=== PATIENT | female | born 1955 | race Caucasian/White ===

== ENCOUNTER 2017-01-04 13:34 | Emergency (ER) | payer OTHER ==
[~2017-01-04] VITALS: Ht 171.4 cm; Wt 99.8 kg
--- NOTE | ~2017-01-04 | CT2 ---
[facility] A Service of [facility] RADIOLOGY TEXT RESULTS PATIENT: CHIOMA BAUMAN LOCATION: [facility] : 57 UNIT #: [id number] AGE: [address]: Giovanni Santoro DO SEX: F ORDER DR: [id number] [facility] [address] [place], [place] [address] [id number] MR#: [id number] Acc #: [id number] NAME: CHIOMA BAUMAN. : 1955 SEX: F STUDY DATE/TIME: 01/04/2017 17:11 UNIT: [facility] ROOM: STUDY DESCRIPTION: CT Abd and Pelv W Cont Attending Physician: Giovanni Santoro D.O. Ordering Physician: Giovanni Santoro D.O. Primary Care Physician: Ponce Lafleur Jr., M.D. MEDICAL IMAGING REPORT This report is preliminary unless electronic signature is present EXAM CT abdomen and pelvis with contrast DATE 01/04/2017 HISTORY 61-year-old female. Right flank pain which began 01/01/2017 but is worsening. History of kidney stones. Hypertension. Previous cholecystectomy. COMPARISON CT abdomen and pelvis without contrast 03/27/2014. CT abdomen and pelvis with contrast 09/21/2013. TECHNIQUE On the axial images from lung bases through the lesser trochanters after intravenous contrast administration. Sagittal and coronal reformatted images were obtained. Contrast was not administered. This CT exam was performed with one or more of the following radiation dose reduction techniques: Automatic exposure control, adjustment of mA and/or kV according to patient size, and iterative reconstruction. FINDINGS ABDOMEN FINDINGS: The liver is enlarged measuring 21.5 cm craniocaudally. The liver is markedly and diffusely steatotic. Cholecystectomy changes are present. Lung bases are clear. Spleen, pancreas, adrenals and kidneys are within normal limits. Appendix is normal. Unopacified bowel appears grossly nonthickened, nondilated, noninflamed. PELVIS FINDINGS: Low density nodules within the uterus likely representing fibroids. Urinary bladder and rectum are normal. No pelvic free fluid. Mild diverticular changes within the sigmoid colon. Moderate STS. [facility] A Service of [facility] RADIOLOGY TEXT RESULTS PATIENT: CHIOMA BAUMAN LOCATION: [facility] : 57 UNIT #: [id number] AGE: [address]: Giovanni Santoro DO SEX: F ORDER DR: osteoarthritic changes within both hips. Degenerative facet arthropathy greatest on the left at L5-S1. No acute osseous abnormalities. IMPRESSION 1. No acute findings in the abdomen or pelvis. No CT explanation for the patient's right side abdominal pain. 2. Normal appendix. 3. Uncomplicated sigmoid diverticulosis. 4. Fibroid uterus. 5. Hepatomegaly with diffuse hepatic steatosis. 6. Cholecystectomy. Dictated by... Velma Abebe M.D. THIS IS AN ELECTRONICALLY VERIFIED REPORT Velma Abebe M.D. at 01/06/2017 9:51 AM CEE/lexie TD: 01/05/2017 13:24 JOB #: [id number] MEDICAL IMAGING REPORT Page 1 of 1 COPY
[~2017-01-04 13:34] MED LIST: B COMPLEX1 TAB PO; CIPRO PO; DISCONTINUED MED; FISH OIL 1,0001 CA2 PO; GARLIC1 CAP PO; GINKGO BILOBA30 MG PO; MULTIVITAMIN1 UDCAP PO; NO MEDICATIONS; PERCOCET 51 UDTAB 5/ PO; VITAMIN E200 UNI1 PO; ZOFRAN
[2017-01-04 15:01] LABS: URINE SOURCE CLEAN CATCH
[2017-01-04 15:05] LABS: URINE APPEARANCE CLOUDY; URINE BILIRUBIN NEG (NEG); URINE BLOOD TRACE (NEG); URINE COLOR DK YELLOW; URINE GLUCOSE NEG (NEG); URINE KETONE TRACE (NEG); URINE LEUKOCYTE ESTERASE TRACE (NEG); URINE NITRATE NEG (NEG); URINE PROTEIN 1+ (NEG); URINE SPECIFIC GRAVITY 1.024 (1.003-1.035); URINE UROBILINOGEN 0.2 MG/DL (NEG)
[2017-01-04 15:10] LABS: CULTURE INDICATED? YES; URINE BACTERIA AUWI 2+ (NEGATIVE); URINE SQUAMOUS EPITHELIAL CELL MOD /[HPF]
[2017-01-04 15:26] LABS: BASOPHIL% 0.3 % (0-2.5); DIFF IND NO; EOSINOPHIL% 0.3 % (0.0-7.0); HEMATOCRIT 45.7 % (35.0-45.0); HEMOGLOBIN 15.5 gm/dL (12.0-16.0); LYMPHOCYTE# 1.2 X10e3 (1.0-3.5); LYMPHOCYTE% 8.5 % (17.0-45.0); MEAN CORPUSCULAR HEMOGLOBIN 26.8 PG (28-34); MEAN CORPUSCULAR HGB CONC 33.9 g/dL (30-36); MEAN PLATELET VOLUME 6.8 FL (6.5-11.5); MONOCYTE# 0.6 X10e3 (0-1.0); MONOCYTE% 4.2 % (3.0-12.0); NEUTROPHIL# 12.3 X10e3 (1.5-7.1); NEUTROPHIL% 86.7 % (40-75); PLATELET COUNT 311 X10e3 (140-420); RED BLOOD COUNT 5.78 X10e (3.90-5.30); RED CELL DISTRIBUTION WIDTH 13.4 % (11.0-15.5); WHITE BLOOD COUNT 14.2 X10e3 (4.0-10.5)
[2017-01-04 15:51] LABS: ALBUMIN SERUM 4.3 g/dL (3.5-5.0); BILIRUBIN, DIRECT 0.1 mg/dL (0.0-0.2); BILIRUBIN,INDIRECT 0.8 mg/dL (0.0-0.9); BILIRUBIN,TOTAL 0.9 mg/dL (0.2-2.0); BUN/CREATININE RATIO 18.57; CALCIUM SERUM 9.2 mg/dL (8.4-10.2); CREATININE SERUM 0.7 mg/dL (0.6-1.4); GLOM FILT RATE Estimated 94.2 mL/min (>60); POTASSIUM 3.3 mmol/L (3.5-5.1); PROTEIN TOTAL SERUM 8.2 g/dL (6.0-8.3)
== END 2017-01-04 19:32 | disposition home or self-care (01) ==
LOC: CED 13:34
PROVIDERS: Emergency Medicine
DX: N39.0 Urinary tract infection, site not specified (principal); I10 Essential (primary) hypertension; F17.200 Nicotine dependence, unspecified, uncomplicated
CPT/HCPCS: 36415; 74177; 80048; 80076; 81003; 83690; 85025; 87086; 96361; 96365; 96375; 99284; J0696; J2270; J2405; Q9967